=== PATIENT | male | born 1995 ===

== ENCOUNTER 2017-04-08 23:39 | Emergency (ER) | payer OTHER ==
[2017-04-09] MEDS ORDERED: Ondansetron ODT TAB* 4 MG SL ONE (01:03)
--- NOTE | 2017-04-09 03:03 | ED ---
Progress - Progress Note Progress Note: pt appears sober, feels well, picked up by his friends, neuro intact Course/Dx - Diagnoses Provider Diagnoses: Alcohol intoxication
[2017-04-09 03:08] VITALS: BP 136/84
== END 2017-04-09 03:16 | disposition home or self-care (01) ==
LOC: ED 23:39
DX: F10.129 Alcohol abuse with intoxication, unspecified (principal)
CPT/HCPCS: 36415; 80320; 99284; G0480